=== PATIENT | female | born 1985 | race African-American/Black ===

== ENCOUNTER 2016-12-12 08:01 | Emergency (ER) | payer OTHER ==
[~2016-12-12] VITALS: Ht 170.2 cm; Wt 83.9 kg
[~2016-12-12 08:01] MED LIST: HYDR25TA9 PO
[2016-12-12] MEDS ORDERED: IBUPROFEN 600 MG TABLET PO ONE ×2 (08:26→08:30)
[2016-12-12 09:31] VITALS: BP 135/67
== END 2016-12-12 09:32 | disposition home or self-care (01) ==
LOC: ER 08:03
DX: M25.561 Pain in right knee (principal); M25.562 Pain in left knee; I10 Essential (primary) hypertension
CPT/HCPCS: 73564 ×2; 99284; A4606; Z7610

== ENCOUNTER 2017-11-07 11:19 | Emergency (ER) | payer OTHER ==
[~2017-11-07] VITALS: Ht 170.2 cm; Wt 81.6 kg
[2017-11-07 11:20] VITALS: BP 160/104
[2017-11-07] MEDS ORDERED: HYDROCODONE BIT/HOMATROPINE 5 ML UDC PO ONE (13:00)
[2017-11-07] MEDS ORDERED: IPRATROPIUM NEB FS 0.5 MG/2.5 ML AMPUL.NEB NEB ONE (13:00)
[2017-11-07] MEDS ORDERED: ALBUTEROL FS 2.5 MG/3 ML VIAL.NEB NEB ONE (13:00)
== END 2017-11-07 14:48 | disposition home or self-care (01) ==
LOC: ER 11:21
DX: J40 Bronchitis, not specified as acute or chronic (principal); J06.9 Acute upper respiratory infection, unspecified; I10 Essential (primary) hypertension
CPT/HCPCS: 71045; 94640; 99283; A4606; Z7610

== ENCOUNTER 2018-07-08 06:24 | Emergency (ER) | payer MEDICAID, OTHER ==
[~2018-07-08] VITALS: Ht 172.7 cm; Wt 81.6 kg
--- NOTE | 2018-07-08 06:41 | NUR ---
PT BIB SELF C/O SEVERE LOWER ABD PAIN X2 DAYS WITH NAUSEA. DENIES VOMITING, DIARRHEA, DYSURIA, VAGINAL DISCHARGE. RESP EVEN UNLABORED. SKIN WARM DRY. PT APPEARS VERY UNCOMFORTABLE. AMBULATORY STEADY GAIT. IN ER BED 01. PROVIDED URINE SAMPLE BY CLEAN CATCH.
[2018-07-08] MEDS ORDERED: ONDANSETRON HCL/PF 4 MG/2 ML VIAL ONE (06:44)
[2018-07-08] MEDS ORDERED: HYDROMORPHONE 1 MG/1 ML DISP.SYRIN ONE ×2 (06:45→08:40)
--- NOTE | 2018-07-08 06:47 | NUR ---
JEWELRY REPAIRER NATALIE WENT TO BEDSIDE TO START IV AND DRAW BLOOD; PT REQUESTED THAT SHE COME BACK LATER
[2018-07-08] MEDS ORDERED: ONDANSETRON HCL/PF 4 MG/2 ML VIAL IVP ONE (07:00)
[2018-07-08] MEDS ORDERED: IV NS 0.9% 1,000 ML BAG IV ONE (07:00)
[2018-07-08] MEDS ORDERED: HYDROMORPHONE INJ 2 MG/ML DISP.SYRIN IV ONE (07:00)
[2018-07-08 07:12] LABS: BASOPHILS % (AUTO) 0.1 % (0.0-2.0); EOSINOPHILS % (AUTO) 0.2 % (0.0-6.0); HEMATOCRIT 39 % (33-45); HEMOGLOBIN 12.4 g/dL (11.5-14.8); LYMPHOCYTES # (AUTO) 1.3 /CMM (0.8-4.8); LYMPHOCYTES % (AUTO) 7.4 % (20.0-44.0); MEAN CORPUSCULAR HEMOGLOBIN 28 PG (26.0-33.0); MEAN CORPUSCULAR HGB CONC 32 g/dl (31.0-36.0); MEAN CORPUSCULAR VOLUME 89 fL (82-100); MONOCYTES # (AUTO) 0.1 /CMM (0.1-1.30); MONOCYTES % (AUTO) 0.8 % (2.0-12.0); NEUTROPHILS % (AUTO) 91.5 % (43.0-81.0); PLATELET COUNT (AUTO) 384 /CMM (150-450); RDW COEFFICIENT OF VARIATION 14.9 (11.5-15.0); RED BLOOD CELL COUNT(AUTO) 4.36 MIL/uL (4.0-5.2); WHITE BLOOD COUNT (AUTO) 17.5 K/uL (4.3-11.0)
[2018-07-08 07:24] LABS: CREATININE 0.7 mg/dL (0.6-1.3); POTASSIUM 3.8 mmol/L (3.5-5.1)
[2018-07-08 07:30] LABS: ALBUMIN 3.8 g/dL (3.4-5.0); BILIRUBIN,DIRECT 0.2 mg/dL (0.0-0.2); BILIRUBIN,TOTAL 1.4 mg/dL (0.2-1.0); TOTAL PROTEIN, SERUM 8.1 g/dL (6.4-8.2)
[2018-07-08 07:33] LABS: BILIRUBIN,URINE NEGATIVE (NEGATIVE); BLOOD, URINE 1+ Ery/uL (NEGATIVE); COLOR,URINE DARK YELLO (YELLOW); KETONES,URINE 2+ (NEGATIVE); LEUKOCYTE ESTERASE ,URINE NEGATIVE (NEGATIVE); NITRITE, URINE NEGATIVE (NEGATIVE); PROTEIN,URINE TRACE mg/dl (NEGATIVE); UGLUCOSE NEGATIVE (NEGATIVE); UROBILINOGEN,URINE 0.2 EU/dL (0.2)
[2018-07-08 07:34] LABS: APPEARANCE,URINE SLIGHTLY CLOUDY (CLEAR)
[2018-07-08 07:40] LABS: BACTERIA,URINE Many /HPF (None Seen); SQUAMOUS EPITHELIAL CELL,UR Moderate /HPF (None Seen)
[2018-07-08 07:41] LABS: MUCUS,URINE Few /LPF (None Seen)
--- NOTE | 2018-07-08 07:45 | NUR ---
DR CARBAJAL AT BS FOR AN UPDATE AND RE-EVAL.
[2018-07-08] MEDS ORDERED: HYDROMORPHONE INJ 0.5 MG/0.5 ML SYRINGE IV ONE (08:30)
--- NOTE | 2018-07-08 08:30 | NUR ---
Patient is resting comfortably in bed with eyes closed. Easily aroused. VSS
[2018-07-08 08:39] LABS: LYMPHOCYTES % (MANUAL) 9 % (16-48); MONOCYTES % (MANUAL) 6 % (0-11.0); NEUTROPHILS % (MANUAL) 85 (42-76)
--- NOTE | 2018-07-08 10:30 | NUR ---
Patient is resting comfortably in bed with eyes closed. Easily aroused. VSS
[2018-07-08] MEDS ORDERED: CEFTRIAXONE 0.25 G in IV D5W 50 ML IV ONE (11:00)
[2018-07-08 11:55] VITALS: BP 142/89
--- NOTE | 2018-07-08 11:55 | NUR ---
IV removed. Catheter intact and site benign. Pressure and 4x4 applied to site. No bleeding noted.Patient discharged to home in stable condition. Written and verbal after care instructions given. Patient verbalizes understanding of instruction.
== END 2018-07-08 11:56 | disposition home or self-care (01) ==
LOC: ER 06:28
DX: R10.2 Pelvic and perineal pain (principal); I10 Essential (primary) hypertension; Z98.890 Other specified postprocedural states
CPT/HCPCS: 36415; 74176; 76856; 80048; 80076; 81001; 83690; 84703; 85025; 87086; 96365; 96375; 96376; 99285; A4606; J0696; J1170 ×2; J2405; J7030; J7060; Z7610; 81000-TC

== ENCOUNTER 2021-03-13 18:25 | Emergency (ER) | payer MEDICAID ==
[~2021-03-13] VITALS: Ht 172.7 cm; Wt 81.6 kg
[2021-03-13 18:40] VITALS: BP 154/110
[2021-03-13] MEDS ORDERED: PENI500T PO (18:57)
[2021-03-13] MEDS ORDERED: NAPR-1164 PO (18:57)
[2021-03-13] MEDS ORDERED: DEXAMETHASONE SOD PHOSPHATE 10 MG/ML VIAL MC ONE (19:00)
[2021-03-13] MEDS ORDERED: DEXAMETHASONE SOLN 5 MG/5 ML UDC ONE (19:01)
--- NOTE | 2021-03-13 19:09 | NUR ---
Patient discharged to home in stable condition. Written and verbal after care instructions given. Patient verbalizes understanding of instruction.
== END 2021-03-13 19:09 | disposition home or self-care (01) ==
LOC: ER 18:25
DX: K04.7 Periapical abscess without sinus (principal); I10 Essential (primary) hypertension; Z98.890 Other specified postprocedural states; Z79.899 Other long term (current) drug therapy
CPT/HCPCS: 99283; J8540

== ENCOUNTER 2021-09-12 13:15 | Emergency (ER) | payer MEDICAID ==
[~2021-09-12] VITALS: Ht 170.2 cm; Wt 87.1 kg
[~2021-09-12 13:15] MED LIST changes: +NAPR-1164 PO; +PENI500T PO
[2021-09-12 13:39] VITALS: BP 167/118
[2021-09-12] MEDS ORDERED: AMOX-430 PO (14:26)
[2021-09-12] MEDS ORDERED: IBUP-1955 PO (14:26)
[2021-09-12] MEDS ORDERED: HYDR-4275 PO (14:27)
--- NOTE | 2021-09-12 14:40 | NUR ---
Patient discharged to home in stable condition. Written and verbal after care instructions given. Patient verbalizes understanding of instruction.
== END 2021-09-12 14:40 | disposition home or self-care (01) ==
LOC: ER 13:29
DX: K08.89 Other specified disorders of teeth and supporting structures (principal); I10 Essential (primary) hypertension; Z98.890 Other specified postprocedural states; Z79.899 Other long term (current) drug therapy

== ENCOUNTER 2022-01-24 02:38 | Emergency (ER) | payer MEDICAID ==
[~2022-01-24] VITALS: Ht 172.7 cm; Wt 86.2 kg
[~2022-01-24 02:38] MED LIST changes: +AMOX-430 PO; +HYDR-4275 PO; +IBUP-1955 PO
--- NOTE | 2022-01-24 02:56 | NUR ---
BIBS C/O LLQ PAIN X3 HOURS "AFTER EATING CARLS JR". +N/V/D. PATIENT ALERT AND ORIENTED X3. AMBULATORY WITH NON LABORED BREATHING IN BED 09 AWAINTING MD SOLORZANO.
[2022-01-24] MEDS ORDERED: ONDANSETRON HCL/PF 4 MG/2 ML VIAL ONE (03:00)
[2022-01-24] MEDS ORDERED: IV NS 0.9% 1,000 ML BAG IV ONE (03:00)
[2022-01-24] MEDS ORDERED: DICYCLOMINE HCL INJ 20 MG/2 ML AMPUL IM ONE ×2 (03:00)
[2022-01-24] MEDS ORDERED: ONDANSETRON HCL/PF 4 MG/2 ML VIAL IVP ONE (03:00)
--- NOTE | 2022-01-24 03:29 | NUR ---
LAB AT BEDSIDE
[2022-01-24 03:41] LABS: BASOPHILS % (AUTO) 0.5 % (0.0-2.0); EOSINOPHILS % (AUTO) 5.4 % (0.0-6.0); HEMATOCRIT 35 % (33-45); HEMOGLOBIN 11.2 g/dL (11.5-14.8); LYMPHOCYTES # (AUTO) 1.6 K/uL (0.8-4.8); LYMPHOCYTES % (AUTO) 22.4 % (20.0-44.0); MEAN CORPUSCULAR HGB CONC 32 g/dl (31.0-36.0); MEAN CORPUSCULAR VOLUME 83 fL (82-100); MONOCYTES # (AUTO) 0.3 K/uL (0.1-1.30); MONOCYTES % (AUTO) 4.3 % (2.0-12.0); NEUTROPHILS % (AUTO) 67.4 % (43.0-81.0); PLATELET COUNT (AUTO) 391 K/uL (150-450); WHITE BLOOD COUNT (AUTO) 7.4 K/uL (4.3-11.0)
[2022-01-24 03:53] LABS: BILIRUBIN,URINE NEGATIVE (NEGATIVE); COLOR,URINE YELLOW (YELLOW); LEUKOCYTE ESTERASE ,URINE NEGATIVE (NEGATIVE); NITRITE, URINE NEGATIVE (NEGATIVE); PROTEIN,URINE TRACE mg/dl (NEGATIVE); UGLUCOSE NEGATIVE (NEGATIVE)
[2022-01-24 04:04] LABS: PH,URINE 6.5 (5.0-8.0)
[2022-01-24 04:09] LABS: BACTERIA,URINE Few /HPF (None Seen); RBC,URINE 0-2 /HPF (0-2); WBC,URINE 0-2 /HPF (0-3)
[2022-01-24 04:10] LABS: SQUAMOUS EPITHELIAL CELL,UR Moderate /HPF (None Seen)
[2022-01-24 04:10] LABS: ALBUMIN 3.8 g/dL (3.4-5.0); BILIRUBIN,DIRECT 0.1 mg/dL (0.0-0.2); BILIRUBIN,TOTAL 0.5 mg/dL (0.2-1.0); CALCIUM, SERUM 8.4 mg/dL (8.5-10.1); CREATININE 1.1 mg/dL (0.6-1.3); POTASSIUM 3.3 mmol/L (3.5-5.1); TOTAL PROTEIN, SERUM 8.1 g/dL (6.4-8.2)
--- NOTE | 2022-01-24 04:18 | NUR ---
TAKEN TO RADIOLOGY
[2022-01-24] MEDS ORDERED: ONDA4TAB5 PO (05:33)
[2022-01-24] MEDS ORDERED: IBUP-1957 PO (05:33)
--- NOTE | 2022-01-24 05:35 | NUR ---
Patient discharged to home in stable condition. Written and verbal after care instructions given. Patient verbalizes understanding of instruction. IV removed. Catheter intact and site benign. Pressure and 4x4 applied to site. No bleeding noted.Pt ambulatory with a steady gait
[2022-01-24 05:46] VITALS: BP 140/80
== END 2022-01-24 05:35 | disposition home or self-care (01) ==
LOC: ER 02:42
DX: N83.209 Unspecified ovarian cyst, unspecified side (principal); N20.0 Calculus of kidney; I10 Essential (primary) hypertension; Z98.890 Other specified postprocedural states; Z79.899 Other long term (current) drug therapy
CPT/HCPCS: 36415; 74176; 80048; 80076; 81001; 83690; 84703; 85025; 96361; 96372; 96374; 99285; J0500; J2405; J7030

== ENCOUNTER 2022-12-28 01:05 | Emergency (ER) | payer MEDICAID ==
[~2022-12-28] VITALS: Ht 170.2 cm; Wt 85.3 kg
[~2022-12-28 01:05] MED LIST changes: +IBUP-1957 PO; +ONDA4TAB5 PO
[2022-12-28] MEDS ORDERED: AMOX-430 PO (02:24)
--- NOTE | 2022-12-28 02:25 | NUR ---
Patient discharged to home in stable condition. Written and verbal after care instructions given. Patient verbalizes understanding of instruction.
[2022-12-28] MEDS ORDERED: IBUPROFEN 400 MG TABLET ONE (02:33)
[2022-12-28 02:36] VITALS: BP 175/125
[2022-12-28] MEDS ORDERED: IBUPROFEN 400 MG TABLET PO ONE (03:00)
== END 2022-12-28 02:38 | disposition home or self-care (01) ==
LOC: ER 01:47
DX: K04.7 Periapical abscess without sinus (principal); I10 Essential (primary) hypertension; Z98.890 Other specified postprocedural states; Z79.899 Other long term (current) drug therapy